=== PATIENT | male | born 1955 | race Caucasian/White ===

== ENCOUNTER 2016-08-01 13:59 | Emergency (ER) | payer OTHER ==
[~2016-08-01] VITALS: Ht 175.2 cm; Wt 88.5 kg
[~2016-08-01 13:59] MED LIST: NKHM; PERCOCET 325 MG1 TA2 PO
[2016-08-01] MEDS ORDERED: LISINOPRIL10 M1 PO (14:16)
[2016-08-01] MEDS ORDERED: ATORVASTATIN CA10 M1 PO (14:16)
[2016-08-01] MEDS ORDERED: METFOMIN HYDRO850 MG PO (14:16)
== END 2016-08-01 14:40 | disposition home or self-care (01) ==
LOC: ED 13:59
DX: S91.332A Puncture wound without foreign body, left foot, initial encounter (principal); I10 Essential (primary) hypertension; Z79.899 Other long term (current) drug therapy; W22.8XXA Striking against or struck by other objects, initial encounter; Y93.89 Activity, other specified; Y92.89 Other specified places as the place of occurrence of the external cause; Y99.9 Unspecified external cause status

== ENCOUNTER → 2016-12-12 | Outpatient (CLI) | payer OTHER ==
[~2016-12-12] MED LIST changes: +ATORVASTATIN CA10 M1 PO; +LISINOPRIL10 M1 PO; +METFOMIN HYDRO850 MG PO
== END | disposition home or self-care (01) ==
LOC: CT 12-11 09:00
DX: R10.9 Unspecified abdominal pain (principal)

== ENCOUNTER → 2017-09-02 | Outpatient (CLI) | payer OTHER | END | disposition home or self-care (01) | LOC: RAD 11:27 | DX: M54.2 Cervicalgia (principal); M54.9 Dorsalgia, unspecified ==

== ENCOUNTER → 2017-10-01 | Day surgery (SDC) | payer OTHER ==
[~2017-10-01] VITALS: Ht 175.2 cm; Wt 86.6 kg
[~2017-10-01] MED LIST changes: +MELOXICAM7.5 MG PO
--- NOTE | ~2017-10-01 | O ---
[place], [place] OPERATIVE NOTE NAME: MELBA HARMON UNIT #: [id number] ROOM: DOCTOR: CASSIE HARGROVE MD BIRTHDATE: [birth year] DOS: 10/01/2017 GASTROENDOSCOPIC REPORT INDICATIONS: A 62-year-old patient who has presented with history of colonic polyp years ago and he is concerned about a followup. He has had history of dyspepsia. Also, he has been on meloxicam. ALLERGIES: To no known medication. FAMILY HISTORY: Noncontributory. PAST SURGICAL HISTORY: Perirectal abscess drainage. PAST MEDICAL HISTORY: Diabetes mellitus and hypertension. SOCIAL HISTORY: Nonsmoker; however, alcohol consumer. PROCEDURE: Today's procedure part of investigation is colonoscopy. PREMEDICATIONS: Versed and propofol. SCOPE: Olympus folding colonoscope 10L video. REPORT: After putting the patient in left lateral position and application of lubricant to the scope, the scope was introduced; thereafter, under direct visualization, advanced through the length of colon without difficulty. Scattered rare diverticulosis in the left side of the colon appreciated. Base of the cecum was explored, appendiceal was identified, ileocecal valve was defined. No other pathology identified. The patient was extubated, tolerated the procedure well. IMPRESSION: Rare diverticulosis. PLAN AND DISCUSSION: High fiber diet. As far as his dyspepsia, he is going to be started on omeprazole. He has been on nonsteroidal anti-inflammatory and the etiology of his dyspepsia could be secondary to gastritis secondary to Meloxicam intake. Follow-up colonoscopy in 10 years unless patient has symptoms for which follow-up should be sooner. [place], [place] OPERATIVE NOTE NAME: FAUSTINOMELBA Cartagena UNIT #: [id number] ROOM: DOCTOR: CASSIE HARGROVE MD BIRTHDATE: [birth year] CASSIE HARGROVE MD CM:OPRECORD:OPERATIVE NOTE [id number] RAVI HARGROVE MD 10/27/17 1736 interface
[2017-10-01 07:30] VITALS: BP 117/42
[2017-10-01 09:32] VITALS: BP 108/51
[2017-10-01 09:47] VITALS: BP 123/87
[2017-10-01 10:02] VITALS: BP 122/72
== END | disposition home or self-care (01) ==
LOC: SDC 09-26 09:30
DX: Z09 Encounter for follow-up examination after completed treatment for conditions other than malignant neoplasm (principal); Z86.010 Personal history of colon polyps; K57.30 Diverticulosis of large intestine without perforation or abscess without bleeding; E11.9 Type 2 diabetes mellitus without complications; I10 Essential (primary) hypertension; K29.70 Gastritis, unspecified, without bleeding; Z79.899 Other long term (current) drug therapy; E78.5 Hyperlipidemia, unspecified; F32.9 Major depressive disorder, single episode, unspecified; Z82.49 Family history of ischemic heart disease and other diseases of the circulatory system; Z83.3 Family history of diabetes mellitus

== ENCOUNTER → 2019-05-20 | Outpatient (CLI) | payer OTHER | END | disposition home or self-care (01) | LOC: US 14:00 | DX: M54.9 Dorsalgia, unspecified (principal) ==

== ENCOUNTER → 2020-04-19 | Outpatient (CLI) | payer OTHER ==
[2020-04-19 11:29] LABS: BASO % 0.5 % (0.0-1.0); EOS # 0.1 10*3/uL (0.0-0.4); EOS % 1.3 % (1.0-4.0); HEMATOCRIT 50.2 % (42.0-52.0); LYMPH % 25.4 % (27.0-41.0); MEAN CORPUSCULAR HGB 30.1 pg (27.0-31.0); MEAN CORPUSCULAR HGB CONC 33.5 g/dl (33.0-37.0); MEAN PLATELET VOLUME 11.8 fl (9.6-12.3); MONO # 0.6 10*3/uL (0.1-1.0); MONO % 7.4 % (3.0-9.0); NEUT # 5.1 10*3/uL (2.3-7.9); NEUT % 64.9 % (47.0-73.0); PLATELET COUNT AUTOMATED 170 10*3/uL (130-400); RED BLOOD COUNT 5.58 10*6/uL (4.50-5.90); WHITE BLOOD COUNT 7.8 10*3/uL (4.8-10.8)
[2020-04-19 12:00] LABS: ALKALINE PHOSPHATASE 68 U/L (45-117); BUN 15 mg/dl (7-24); CHLORIDE 102 mmol/L (98-107); CHOLESTEROL 199 mg/dL (<200); CREATININE 1.33 mg/dL (0.70-1.30); POTASSIUM 4.3 mmol/L (3.5-5.1); SGOT/AST 33 IU/L (3-35); SGPT/ALT 47 U/L (12-78); SODIUM 135 mmol/L (136-145); TOTAL PROTEIN 7.9 gm/dL (6.4-8.2); TRIGLYCERIDES 384 mg/dl (<150); VLDL CHOLESTEROL 77 mg/dL (6-40)
[2020-04-19 12:06] LABS: FREE T4 0.81 ng/dl (0.76-1.46); HDL CHOLESTEROL 46 mg/dl (40-60); LDL CHOLESTEROL 76 mg/dL (9-159)
[2020-04-19 12:22] LABS: VITAMIN D, 25-HYDROXY 47.3 ng/mL (30-100)
== END | disposition home or self-care (01) ==
LOC: LAB 11:00
PROVIDERS: ATTEND Internal Medicine
DX: Z12.5 Encounter for screening for malignant neoplasm of prostate (principal); I12.9 Hypertensive chronic kidney disease with stage 1 through stage 4 chronic kidney disease, or unspecified chronic kidney disease; N18.30 Chronic kidney disease, stage 3 unspecified; E11.22 Type 2 diabetes mellitus with diabetic chronic kidney disease; E55.9 Vitamin D deficiency, unspecified

== ENCOUNTER → 2021-03-07 | Outpatient (CLI) | payer OTHER ==
[2021-03-07 09:12] LABS: BASO % 0.6 % (0.0-1.0); EOS # 0.1 10*3/uL (0.0-0.4); EOS % 2.1 % (1.0-4.0); HEMATOCRIT 47.6 % (42.0-52.0); LYMPH # 1.9 10*3/uL (1.3-4.4); LYMPH % 27.9 % (27.0-41.0); MEAN CELL VOLUME 92.4 fl (80.0-94.0); MEAN CORPUSCULAR HGB 31.3 pg (27.0-31.0); MEAN CORPUSCULAR HGB CONC 33.8 g/dl (33.0-37.0); MEAN PLATELET VOLUME 11.4 fl (9.6-12.3); MONO # 0.6 10*3/uL (0.1-1.0); NEUT # 4.1 10*3/uL (2.3-7.9); NEUT % 59.8 % (47.0-73.0); PLATELET COUNT AUTOMATED 207 10*3/uL (130-400); RED BLOOD COUNT 5.15 10*6/uL (4.50-5.90); RED CELL DISTRI WIDTH 12.5 % (0-14.5); WHITE BLOOD COUNT 6.8 10*3/uL (4.8-10.8)
[2021-03-07 09:27] LABS: CREATININE 1.51 mg/dL (0.70-1.30); FREE T4 0.94 ng/dl (0.76-1.46); POTASSIUM 4.3 mmol/L (3.5-5.1); TOTAL PROTEIN 7.6 gm/dL (6.4-8.2)
[2021-03-07 09:32] LABS: THYROID STIM HORMONE (HS) 2.76 uIU/ml (0.358-4.75)
[2021-03-07 13:50] LABS: VITAMIN D, 25-HYDROXY 39.1 ng/mL (30-100)
== END | disposition home or self-care (01) ==
LOC: LAB 08:37
PROVIDERS: ATTEND Internal Medicine
DX: Z12.5 Encounter for screening for malignant neoplasm of prostate (principal); E11.22 Type 2 diabetes mellitus with diabetic chronic kidney disease; I12.9 Hypertensive chronic kidney disease with stage 1 through stage 4 chronic kidney disease, or unspecified chronic kidney disease; N18.31 Chronic kidney disease, stage 3a; E55.9 Vitamin D deficiency, unspecified; Z00.00 Encounter for general adult medical examination without abnormal findings

== ENCOUNTER → 2022-04-05 | Outpatient (CLI) | payer OTHER | END | disposition home or self-care (01) | LOC: US 12:36 | PROVIDERS: ATTEND Internal Medicine | DX: I65.23 Occlusion and stenosis of bilateral carotid arteries (principal); I10 Essential (primary) hypertension; E11.65 Type 2 diabetes mellitus with hyperglycemia ==

== ENCOUNTER → 2022-08-23 | Outpatient (CLI) | payer OTHER ==
[2022-08-23 09:35] LABS: HEMATOCRIT 50.4 % (42.0-52.0); MEAN CELL VOLUME 89.7 fl (80.0-94.0); MEAN CORPUSCULAR HGB 30.4 pg (27.0-31.0); MEAN CORPUSCULAR HGB CONC 33.9 g/dl (33.0-37.0); PLATELET COUNT AUTOMATED 185 10*3/uL (130-400); RED BLOOD COUNT 5.62 10*6/uL (4.50-5.90); RED CELL DISTRI WIDTH 12.9 % (0-14.5); WHITE BLOOD COUNT 7.9 10*3/uL (4.8-10.8)
[2022-08-23 09:47] LABS: NEUT % 73.6 % (47.0-73.0)
[2022-08-23 09:48] LABS: BASO % 0.3 % (0.0-1.0); EOS % 0.5 % (1.0-4.0); LYMPH # 1.4 10*3/uL (1.3-4.4); LYMPH % 17.9 % (27.0-41.0); MONO # 0.6 10*3/uL (0.1-1.0); MONO % 7.4 % (3.0-9.0); NEUT # 5.8 10*3/uL (2.3-7.9)
[2022-08-23 09:58] LABS: VITAMIN D, 25-HYDROXY 35.9 ng/mL (30-100)
[2022-08-23 09:59] LABS: ALKALINE PHOSPHATASE 47 U/L (46-116); BUN 17 mg/dl (9-23); CHLORIDE 102 mmol/L (98-107); CHOLESTEROL 178 mg/dL (<200); FREE T4 0.99 ng/dl (0.89-1.76); LDL CHOLESTEROL 123 mg/dL (9-159); SGPT/ALT 23 U/L (10-49); THYROID STIM HORMONE (HS) 1.302 uIU/ml (0.550-4.780); TOTAL PROTEIN 7.8 gm/dL (6.0-8.0); TRIGLYCERIDES 94 mg/dl (<150)
== END | disposition home or self-care (01) ==
LOC: LAB 09:01
PROVIDERS: ATTEND Internal Medicine
DX: S89.91XA Unspecified injury of right lower leg, initial encounter (principal); M25.861 Other specified joint disorders, right knee; M25.561 Pain in right knee; I10 Essential (primary) hypertension; E11.9 Type 2 diabetes mellitus without complications; E78.2 Mixed hyperlipidemia; Z13.0 Encounter for screening for diseases of the blood and blood-forming organs and certain disorders involving the immune mechanism; Z13.21 Encounter for screening for nutritional disorder; Z13.220 Encounter for screening for lipoid disorders; Z13.228 Encounter for screening for other metabolic disorders; Z13.29 Encounter for screening for other suspected endocrine disorder; Z13.6 Encounter for screening for cardiovascular disorders; Z13.89 Encounter for screening for other disorder; X58.XXXA Exposure to other specified factors, initial encounter; Y93.89 Activity, other specified; Y92.89 Other specified places as the place of occurrence of the external cause; Y99.8 Other external cause status

== ENCOUNTER 2025-04-07 16:04 | Emergency (ER) | payer MEDICARE ==
[~2025-04-07] VITALS: Wt 73.5 kg
[2025-04-07] MEDS ORDERED: DULOXETINE HCL30 MG PO (16:30)
[2025-04-07] MEDS ORDERED: GLIMEPIRIDE4 M1 PO (16:30)
[2025-04-07] MEDS ORDERED: FENOFIBRATE145 M1 PO (16:30)
[2025-04-07 18:08] LABS: MEAN CELL VOLUME 85.1 fl (80.0-94.0); MEAN CORPUSCULAR HGB 29.1 pg (27.0-31.0); NUCLEATED RED BLOOD CELL 0.0 % (0.0-0.0); NUCLEATED RED BLOOD CELL 0.0 10*3/uL (0.0-0.0); PLATELET COUNT AUTOMATED 224 10*3/uL (130-400); RED CELL DISTRI WIDTH 18.4 % (0-14.5)
[2025-04-07 18:20] LABS: BILIRUBIN 3+ (Negative); BLOOD Negative (Negative); CLARITY Clear (Clear); COLOR Dark Yellow (Yellow); KETONE Negative (Negative); LEUKO ESTERASE Negative (Negative); NITRITE Negative (Negative); PH 6.0 (4.5-8.0); SPECIFIC GRAVITY 1.020 (1.001-1.030); UROBILINOGEN 0.2 E.U./dl (0.0-1.0)
[2025-04-07 18:28] LABS: BACTERIA 1+; EPITHELIAL CELLS 16-20; FINE GRANULAR CAST 0-2; MUCOUS TRACE; RBC 0-2 rbc/hpf (0-2)
[2025-04-07 18:39] LABS: MANUAL DIFF REFLEX YES
[2025-04-07 18:42] LABS: BASOPHILS 1 % (0-1); BUN 20 mg/dl (9-23); PLATELET SUFFICIENCY NORMAL (NORMAL); SGPT/ALT 265 U/L (5-49)
[2025-04-07 18:43] LABS: STOMATOCYTE FEW
[2025-04-07] MEDS ORDERED: IOHEXOL 300 MG/ML 100 ML VIAL IV ONE (18:50)
[2025-04-07] MEDS ORDERED: IOHEXOL 300 MG/ML 100 ML VIAL ONE (19:14)
[2025-04-07] MEDS ORDERED: RYBELSUS7 MG PO (22:01)
[2025-04-07] MEDS ORDERED: HYDROXYZINE HCL25 MG PO (22:02)
[2025-04-07] MEDS ORDERED: SODIUM CHLORIDE 0.9% 1,000 ML IV ONE (23:05)
== END 2025-04-08 04:55 | disposition short-term general hospital (02) ==
LOC: ED 16:04
PROVIDERS: Nurse Practitioner Family
DX: S36.209A Unspecified injury of unspecified part of pancreas, initial encounter (principal); K83.1 Obstruction of bile duct; R10.11 Right upper quadrant pain; I10 Essential (primary) hypertension; E11.9 Type 2 diabetes mellitus without complications; F32.A Depression, unspecified; X58.XXXA Exposure to other specified factors, initial encounter; Y93.89 Activity, other specified; Y92.89 Other specified places as the place of occurrence of the external cause; Y99.8 Other external cause status